=== PATIENT | female | born 1990 | race Caucasian/White ===

== ENCOUNTER → 2017-01-16 | Day surgery (SDC) | payer OTHER ==
[2017-01-14 13:54] VITALS: Ht 175.3 cm; Wt 98.6 kg
[~2017-01-16] VITALS: Ht 175.3 cm; Wt 98.6 kg
[~2017-01-16] MED LIST: LIDOCAINE HCL 2% 2 ML VIAL (20MG/ML) ONE; PRLSR20 PO; PROPOFOL IV EMULSION 10 MG/ML 20 ML VIAL IV ONE; SERT25TA PO; SODIUM CHLORIDE 0.9% 500ML 500 ML IV ONE; SPR28 PO
--- NOTE | 2017-01-16 11:53 | Endo History and Physical ---
History & Physical Date of Service: Jan 16, 2017. Chief Complaint: ABDOMINAL PAIN Referring Physician: DR. SPANGLER History of Present Illness 26 yo CF who presents for EGD secondary to abdominal pain. Past Surgical History Hx Cardiac Surgery: No Hx Internal Defibrillator: No Hx Pacemaker: No Hx Abdominal Surgery: No Hx of Implantable Prosthesis: No Hx Cancer Surgery: No Hx Thoracic Surgery: No Hx Orthopedic: No Hx Urinary Tract Surgery: No Family History IBD Social History Smoking Status: Never Smoker Hx Substance Use: No Hx Alcohol Use: Yes (OCCASIONAL) Allergies Coded Allergies: Penicillins (Verified Allergy, Mild, HIVES, 01/16/17) Latex1 -Allergic Contact Dermititis (Verified Allergy, Unknown, SKIN IRRITATION, 01/16/17) Sulfamethoxazole w/Trimethoprim (Verified Allergy, Unknown, HIVES, 01/16/17 ) Current Medications Reported Home Medications Medications Dose Route/Sig Max Daily Dose Days Date Category Zoloft (Sertraline HCl) 25 Mg Tab 25 Mg PO QPM 01/14/17 Reported Prilosec (Omeprazole) 20 Mg Capcr 20 Mg PO QPM 01/14/17 Reported Sprintec 28 (Ethinyl Estradiol/Norgestimate) 1 Tab Tab 1 Tab PO QPM 01/14/17 Reported Vital Signs Weight (Kilograms): 98.64 Height (Feet): 5 Height (Inches): 9 Date Time Temp Pulse Resp B/P (MAP) Pulse Ox O2 Delivery O2 Flow Rate FiO2 01/16/17 11:33 37 98 20 145/94 (111) 97 Room Air Physical Exam General Appearance: WD/WN, no apparent distress Respiratory/Chest: Auscultation: breath sounds normal Cardiovascular: Heart Auscultation: RRR Abdomen: Bowel Sounds: normal Inspection & Palpation: soft, non-distended, no tenderness, guarding & rebound Assessment and Plan Assessment: 26 yo CF who presents for EGD secondary to abdominal pain. Plan: Proceed with EGD.
--- NOTE | 2017-01-16 12:13 | Anesthesiology Progress Note ---
Anesthesia Post Op Note Date & Time Jan 16, 2017 at 12:13 Vital Signs Pain Intensity: 0 Vital Signs Past 12 Hours Date Time Temp Pulse Resp B/P (MAP) Pulse Ox O2 Delivery O2 Flow Rate FiO2 01/16/17 11:33 37 98 20 145/94 (111) 97 Room Air Notes Mental Status: alert / awake / arousable, participated in evaluation Pt Amnestic to Procedure: Yes Nausea / Vomiting: adequately controlled Pain: adequately controlled Airway Patency, RR, SpO2: stable & adequate BP & HR: stable & adequate Hydration State: stable & adequate Anesthetic Complications: no major complications apparent
--- NOTE | 2017-01-16 12:17 | Discharge Instructions ---
Endoscopy Patient Instructions Date / Procedure(s) Performed Jan 16, 2017. EGD Allergy Information Coded Allergies: Penicillins (Verified Allergy, Mild, HIVES, 01/16/17) Latex1 -Allergic Contact Dermititis (Verified Allergy, Unknown, SKIN IRRITATION, 01/16/17) Sulfamethoxazole w/Trimethoprim (Verified Allergy, Unknown, HIVES, 01/16/17 ) Discharge Date / Findings Jan 16, 2017. Gastritis s/p biopsies Medication Instructions 1) Start Carafate 1g by mouth four times daily prior to each meal and at bedtime for 10 days. 2) OK to resume all medications today as prescribed Reported Home Medications Medications Dose Route/Sig Max Daily Dose Days Date Category Zoloft (Sertraline HCl) 25 Mg Tab 25 Mg PO QPM 01/14/17 Reported Prilosec (Omeprazole) 20 Mg Capcr 20 Mg PO QPM 01/14/17 Reported Sprintec 28 (Ethinyl Estradiol/Norgestimate) 1 Tab Tab 1 Tab PO QPM 01/14/17 Reported Provider Instructions Activity Restrictions - No exercising or heavy lifting for 24 hours. - Do not drink alcohol the day of the procedure. - Do not drive a car or operate machinery until the day after the procedure. - Do not make any important decisions or sign important papers in 24 hours after the procedure. Following Day: - Return to full activity which may include returning to work/school. Diet Start your diet with liquids and light foods (jello, soup, juice, toast). Then eat your usual diet if not nauseated. Treatment For Common After Affects For mild abdominal pain, bloating, or excessive gas: - Rest - Eat lightly - Lie on right side Follow-Up Information Follow-up with DR. SPANGLER as scheduled Anesthesia Information What You Should Know You have had a procedure that required some medicine to reduce anxiety and discomfort. This treatment is called moderate sedation. After receiving the treatment, you may be sleepy, but you will be able to breathe on your own. The effects of the treatment may last for several hours. Follow these instructions along with Activity/Diet recommendations noted above: * Do NOT do anything where dizziness or clumsiness would be dangerous. * Rest quietly at home today, then you can be up and about tomorrow. * Have a responsible person stay with you the rest of today. * You may have had an I.V. today. If so, you may take the dressing off later today. Recommendations Call your doctor if: * Trouble breathing * Continuous vomiting for more than 24 hours * Temperature above 101 degrees * Severe abdominal pain or bloating * Pain not relieved by pain medicine ordered * There is increased drainage or redness from any incision * A large amount of rectal bleeding greater than 2-3 tablespoons. (If you had a polyp/s removed or have hemorrhoids, a small amount of blood - from the rectum is to be expected.) * You have any unanswered questions or concerns. IN THE EVENT OF A SERIOUS EMERGENCY, GO TO THE NEAREST EMERGENCY ROOM Your discharge instructions were prepared by provider Azeem Trejo. Patient Instructions Signature Page Irma Mandujano Patient (or Guardian) Signature/Date: I have read and understand the instructions given to me by my caregivers. Caregiver/RN/Doctor Signature/Date: The above-named patient and/or guardian has received patient instructions on this date. + Original Patient Signature Page (only) stays with chart. Please make copy for patient.
[2017-01-16 12:38] VITALS: BP 114/69; PULSE 72; O2SAT 97
--- NOTE | 2017-01-17 00:15 | GI REPORT ---
Procedure Date: 01/16/2017 11:42 AM Procedure: Upper GI endoscopy Indications: Epigastric abdominal pain Medicines: Monitored Anesthesia Care Complications: No immediate complications. Estimated Blood Loss: Estimated blood loss: none. Procedure: Pre-Anesthesia Assessment: - Prior to the procedure, a History and Physical was performed, and patient medications and allergies were reviewed. The patient's tolerance of previous anesthesia was also reviewed. The risks and benefits of the procedure and the sedation options and risks were discussed with the patient. All questions were answered, and informed consent was obtained. Prior Anticoagulants: The patient has taken no previous anticoagulant or antiplatelet agents. ASA Grade Assessment: II - A patient with mild systemic disease. After reviewing the risks and benefits, the patient was deemed in satisfactory condition to undergo the procedure. After obtaining informed consent, the endoscope was passed under direct vision. Throughout the procedure, the patient's blood pressure, pulse, and oxygen saturations were monitored continuously. The On-site loaner was introduced through the mouth, and advanced to the second part of duodenum. The upper GI endoscopy was accomplished without difficulty. The patient tolerated the procedure well. Findings: The esophagus was normal. Localized mild inflammation characterized by erythema was found in the gastric antrum. Biopsies were taken with a cold forceps for histology. The examined duodenum was normal. Impression: - Normal esophagus. - Gastritis. Biopsied. - Normal examined duodenum. Recommendation: - Resume previous diet. - Continue present medications. - Await pathology results. - Return to primary care physician as previously scheduled. Azeem Trejo DO 01/16/2017 1:07:21 PM This report has been signed electronically. Note Initiated On: 01/16/2017 11:42 AM I attest to the content of the Intraoperative Record and orders documented therein, exceptions below
== END | disposition home or self-care (01) ==
LOC: C.GI 11:13
PROVIDERS: ATTEND Internal Medicine
DX: K31.9 Disease of stomach and duodenum, unspecified (principal); Z83.79 Family history of other diseases of the digestive system; Z79.899 Other long term (current) drug therapy

== ENCOUNTER → 2017-05-09 | Outpatient (CLI) | payer OTHER ==
[~2017-05-09] MED LIST changes: -LIDOCAINE HCL 2% 2 ML VIAL (20MG/ML) ONE; -PROPOFOL IV EMULSION 10 MG/ML 20 ML VIAL IV ONE; -SODIUM CHLORIDE 0.9% 500ML 500 ML IV ONE
== END | disposition home or self-care (01) ==
LOC: C.PAPS 15:42
PROVIDERS: ATTEND Obstetrics & Gynecology
DX: Z01.419 Encounter for gynecological examination (general) (routine) without abnormal findings (principal)

== ENCOUNTER → 2017-06-05 | Outpatient (CLI) | payer OTHER ==
[2017-06-05 13:40] LABS: BASO % 0.4 %; BASO ABS # 0.06 K/uL (0-0.2); EOS ABS # 0.16 K/uL (0-0.5); HEMATOCRIT 40.8 % (37-47); HEMOGLOBIN 13.8 g/dL (12.0-16.0); IG# 0.04 K/uL (0.00-0.02); LYMPH % 18.1 %; LYMPH ABS # 2.88 K/uL (1.2-3.4); MEAN CELL VOLUME 90.1 fL (80-100); MEAN CORPUSCULAR HEMOGLOBIN 30.5 pg (25-34); MEAN CORPUSCULAR HGB CONC 33.8 g/dl (32-36); MEAN PLATELET VOLUME 10.2 fL (7.4-10.4); MONO % 6.9 %; NEUT % 73.3 %; NEUT ABS # 11.63 K/uL (1.4-6.5); PLATELET COUNT 307 K/uL (130-400); RED CELL DISTRIBUTION WIDTH CV 12.6 % (11.5-14.5); RED CELL DISTRIBUTION WIDTH SD 41.5 fL (36.4-46.3); WHITE BLOOD COUNT 15.87 K/uL (4.8-10.8)
== END | disposition home or self-care (01) ==
LOC: C.LABBC 12:12
PROVIDERS: ATTEND Physician Assistant Medical
DX: R05 Cough (principal); J02.9 Acute pharyngitis, unspecified